=== PATIENT | female | born 1955 | race Two or more races ===

== ENCOUNTER 2018-03-25 10:04 | Outpatient (CLI) | payer OTHER | END 2018-03-25 10:10 | disposition home or self-care (01) | LOC: RAD 501 10:04 | DX: J45.30 Mild persistent asthma, uncomplicated (principal); R05 Cough ==

== ENCOUNTER → 2018-09-12 | Outpatient (CLI) | payer OTHER | END | disposition home or self-care (01) | LOC: NUCLEAR 13:25 | DX: M81.0 Age-related osteoporosis without current pathological fracture (principal) ==

== ENCOUNTER 2020-10-15 14:26 | Outpatient (CLI) | payer OTHER | END 2020-10-15 14:51 | disposition home or self-care (01) | LOC: NUCLEAR 14:26 | DX: M81.0 Age-related osteoporosis without current pathological fracture (principal); M85.9 Disorder of bone density and structure, unspecified ==

== ENCOUNTER 2020-11-29 13:35 | Outpatient (CLI) | payer OTHER | END 2020-11-29 13:47 | disposition home or self-care (01) | LOC: RAD 13:35 | PROVIDERS: ATTEND Internal Medicine Pulmonary Disease | DX: J45.31 Mild persistent asthma with (acute) exacerbation (principal); R05 Cough ==

== ENCOUNTER 2021-09-04 13:16 | Outpatient (CLI) | payer OTHER | END 2021-09-04 13:28 | disposition home or self-care (01) | LOC: MAMO-SONO 13:16 | PROVIDERS: ATTEND Dermatology | DX: N63.10 Unspecified lump in the right breast, unspecified quadrant (principal) ==

== ENCOUNTER 2023-04-07 13:07 | Outpatient (CLI) | payer OTHER | END 2023-04-07 13:09 | disposition home or self-care (01) | LOC: NUCLEAR 13:07 | PROVIDERS: ATTEND Internal Medicine Sports Medicine | DX: M81.0 Age-related osteoporosis without current pathological fracture (principal) ==

== ENCOUNTER → 2023-04-13 | Outpatient (CLI) | payer OTHER | END | disposition home or self-care (01) | LOC: MAMO-SONO 11:27 | PROVIDERS: ATTEND Internal Medicine Sports Medicine | DX: Z12.31 Encounter for screening mammogram for malignant neoplasm of breast (principal) ==

== ENCOUNTER 2024-06-01 12:35 | Outpatient (CLI) | payer OTHER | END 2024-06-01 12:49 | disposition home or self-care (01) | LOC: MAMO-SONO 12:35 | PROVIDERS: ATTEND Internal Medicine Sports Medicine | DX: Z12.39 Encounter for other screening for malignant neoplasm of breast (principal) ==

== ENCOUNTER 2025-06-06 14:19 | Outpatient (CLI) | payer OTHER | END 2025-06-06 14:26 | disposition home or self-care (01) | LOC: RAD 14:19 | PROVIDERS: ATTEND Internal Medicine Pulmonary Disease | DX: J30.1 Allergic rhinitis due to pollen (principal); J45.41 Moderate persistent asthma with (acute) exacerbation ==